=== PATIENT | female | born 1930 | race Caucasian/White ===

== ENCOUNTER → 2018-11-06 | Outpatient (CLI) | payer MEDICARE ==
[~2018-11-06] MED LIST: CATHETER FLUSH 10 ML SYR IV PRN; HOLD METFORMIN - RECEIVED CONTRAST 20 ML VIAL IV SCH; IOHEXOL 350 MG/ML 100 ML (OMNIPAQUE 350) VIAL IV ONE; NS 100 ML (IVPB) BAG IV ONE
--- NOTE | 2018-11-06 12:18 | Diagnostic Imaging Report ---
PROCEDURE: CT abdomen and pelvis with and without contrast. TECHNIQUE: Precontrast acquisitions were acquired through the abdomen and pelvis. Multiple contiguous axial images were obtained through the abdomen and pelvis after the administration of intravenous contrast. Auto Exposure Controls were utilized during the CT exam to meet ALARA standards for radiation dose reduction. INDICATION: Abdominal bloating and elevated CEA lab values. COMPARISON: No prior studies are available for comparison. FINDINGS: Lung bases demonstrate interstitial fibrotic changes. Patient does have a large hiatal hernia. There is a tiny 5 mm low-density posterior right lobe the liver, indeterminate. This is too small to characterize but may represent a small cyst. An area of hyper density in the tip of the liver is seen measuring 5-6 mm. This may represent a flash filling hemangioma. No other liver lesions are seen. There are small stones within the gallbladder. No biliary duct dilatation is seen. The pancreas and spleen are unremarkable. No adrenal mass is identified. Kidneys are unremarkable. Aorta is non-aneurysmal. No central retroperitoneal or mesenteric lymphadenopathy is seen. There is diverticulosis of the sigmoid colon but no evidence of acute diverticulitis. There is no ascites. Partially filled urinary bladder is unremarkable. No definite pelvic lymphadenopathy is seen. IMPRESSION: 1. Bibasilar interstitial fibrosis and large hiatal hernia. 2. Cholelithiasis. 3. Subcentimeter lesions within the liver, too small to characterize but likely benign. 4. Uncomplicated diverticulosis. 5. No evidence of abdominal or pelvic lymphadenopathy. Dictated by: Dictated on workstation # [id number]
== END ==
LOC: RAD FS 10:53
PROVIDERS: ATTEND Family Medicine
DX: J84.10 Pulmonary fibrosis, unspecified (principal); K44.9 Diaphragmatic hernia without obstruction or gangrene; K80.20 Calculus of gallbladder without cholecystitis without obstruction; K76.9 Liver disease, unspecified; K57.30 Diverticulosis of large intestine without perforation or abscess without bleeding; R97.0 Elevated carcinoembryonic antigen [CEA]
CPT/HCPCS: 74177; 74178